=== PATIENT | male | born 1970 | race Caucasian/White ===

== ENCOUNTER 2017-05-24 07:24 | Day surgery (SDC) | payer OTHER ==
[~2017-05-24 07:24] MED LIST: ACETAMINOPHEN 1,000 MG/100 ML BTL IV ONE; CEFAZOLIN 2 Gram 2 GM/50 ML BAG IVPB ONE
[2017-05-24] MEDS ORDERED: KETOROLAC 30 MG/ML VIAL IVP ONE (07:25)
[2017-05-24] MEDS ORDERED: BUPIVACAINE 0.25% W/EPI MPF 30ML VIAL IVP ONE (07:25)
[2017-05-24] MEDS ORDERED: ROPIVACAINE HCL (NAROPIN) /PF 5MG/ML 20ML VIAL IV ONE (07:25)
[2017-05-24] MEDS ORDERED: SEVOFLURANE 250 ML INH ONE (07:25)
[2017-05-24] MEDS ORDERED: MIDAZOLAM HCL 2MG/2ML VIAL IV ONE (07:25)
[2017-05-24] MEDS ORDERED: ONDANSETRON HCL IV 4 MG/2 ML VIAL IVP ONE (07:25)
[2017-05-24] MEDS ORDERED: HYDROCODONE/APAP 5/325MG TABLET PO ONE (07:25)
[2017-05-24] MEDS ORDERED: MORPHINE SULFATE 5 MG/ML PFS IVP ONE (07:25)
[2017-05-24] MEDS ORDERED: DEXAMETHASONE 4 MG/ML 1ML VIAL IVP ONE (07:25)
[2017-05-24] MEDS ORDERED: FENTANYL PF 100MCG/2ML VIAL IV ONE (07:25)
[2017-05-24] MEDS ORDERED: LIDOCAINE 2% MDV (20MG/ML) 20ML VIAL IV ONE (07:25)
[2017-05-24] MEDS ORDERED: PROPOFOL 10 MG/ML VIAL IV ONE (07:25)
--- NOTE | 2017-05-24 13:30 | Operative Note ---
DATE OF SURGERY: 05/24/2017 Surgeon: Hadley Weber DO PREOPERATIVE DIAGNOSIS: Reducible right inguinal hernia. POSTOPERATIVE DIAGNOSIS: Reducible right inguinal hernia, indirect with accompanying cord lipoma. OPERATION: Open right inguinal herniorrhaphy with mesh. Indication: The patient is a 47-year-old male who presented to the clinic with pain and bulging in his right inguinal region. On exam, he clearly had a reducible hernia. We did discuss repair. Risks, benefits, and alternatives were discussed. Risks include but are not limited to bleeding, infection, acute or chronic pain, recurrence, injury to underlying structures. He understood this fully. PROCEDURE: Thereafter, consent was signed and questions answered. He was taken to the operating room and placed in a supine position. General anesthesia was administered per the department of anesthesia. The patient's right inguinal region was shaved of hair and prepped and draped in the usual fashion. At this time, the oblique region was anesthetized with a total of 5 mL of 0.25% Sensorcaine with epinephrine. He also underwent a preoperative block per the department of anesthesia. At this time, a 4 cm oblique incision was made. This was carried down through the subcutaneous tissues to the aponeurosis of the external oblique. This was cleaned off. A zoe was made with a scalpel and enlarged to the superficial inguinal ring with Metzenbaum scissors. Care was taken not to injure the ilioinguinal nerve. Superior and inferior flaps were developed and a Searchlight was placed on the spermatic cord. This was dissected free from underlying transversalis fascia, retracted laterally with a Kacie drain. The floor was inspected and noted to be free of any direct herniation. Cremasteric fibers were then taken down. There was a moderate size cord lipoma as well as indirect hernia sac. High ligations of both were done. At this time, a right-sided ProGrip mesh was obtained. This was placed in the floor of the inguinal canal. We had excellent overlap of the pubic tubercle. The mesh was pre-notched to accompany the deep inguinal ring. The lateral triangle was protected with the lateral aspect of the mesh. At this time, the aponeurosis was closed over the cord with 2-0 Vicryl, the Melida layer was closed with 3-0 Vicryl, and skin was closed with 4-0 Vicryl. He was taken to the recovery room in satisfactory condition. FINDINGS AT THE TIME OF SURGERY: Right inguinal hernia, indirect with accompanying cord lipoma. CC: Gary MONTERO
== END 2017-05-24 11:33 | disposition home or self-care (01) ==
LOC: SUR 07:24
PROVIDERS: ATTEND Surgery
DX: K40.90 Unilateral inguinal hernia, without obstruction or gangrene, not specified as recurrent (principal); D17.6 Benign lipomatous neoplasm of spermatic cord
CPT/HCPCS: 49505; 64425; 00830; J1885; J2405; J3010; J0690; J2270; J2795